=== PATIENT | male | born 1970 | race Caucasian/White ===

== ENCOUNTER 2022-07-01 07:57 | Day surgery (SDC) | payer OTHER ==
[~2022-07-01] VITALS: Ht 165.1 cm; Wt 79.4 kg
[~2022-07-01 07:57] MED LIST: LOTRISONE CREAM15 G1; MELOXICAM; TAMSULOSIN
[2022-07-01 11:05] VITALS: BP 118/81
== END 2022-07-01 10:12 | disposition home or self-care (01) | DRG 395 ==
LOC: ENDO 07:57 → ORM 09:45 → ENDO 10:12
PROVIDERS: ATTEND Surgery
PROC: 0DBK8ZX Excision of Ascending Colon, Via Natural or Artificial Opening Endoscopic, Diagnostic (ICD-10-PCS; principal; 2022-07-01)
PROC: 0DBN8ZX Excision of Sigmoid Colon, Via Natural or Artificial Opening Endoscopic, Diagnostic (ICD-10-PCS; 2022-07-01)
DX: D12.2 Benign neoplasm of ascending colon (principal); K63.5 Polyp of colon; K64.8 Other hemorrhoids